=== PATIENT | female | born 1980 | race Caucasian/White ===

== ENCOUNTER 2021-03-18 14:22 | Outpatient (REF) | payer OTHER, SELFPAY ==
--- NOTE | ~2021-03-18 | XR_ITS ---
EXAMINATION: XR KNEE, BILATERAL XR ANKLE, BILATERAL CLINICAL INFORMATION: Bilateral knee pain and ankle pain. COMPARISON: None TECHNIQUE: 3 views each ankle, 2 views each knee. FINDINGS: RIGHT KNEE AND ANKLE: Overall the knee joint appears somewhat unusual with unusual rounding of the lateral malleolus and a somewhat shortened medial malleolus possibly secondary to old tibial plafond fracture. The tibial plateaus appear somewhat rounded as well. The knee joint otherwise appears unremarkable with no joint space narrowing or abnormal chondrocalcinosis. The right ankle also demonstrates a similar abnormality with rounding of the distal fibular and tibial contour and rounding of the tibial plateau. No other ankle abnormality is seen. LEFT KNEE AND ANKLE: Overall the knee joint appears somewhat unusual with unusual rounding of the lateral malleolus and a somewhat shortened medial malleolus. The tibial plateaus appear somewhat rounded as well, possibly secondary to old tibial plafond fracture. A small bone island is present in the proximal tibial metaphysis The knee joint otherwise appears unremarkable with no significant bone, joint or soft tissue abnormality seen. The right ankle also demonstrates a similar abnormality with rounding of the distal fibular and tibial contour and rounding of the tibial plateau. No other ankle abnormality is seen. XR/XR ankle RT 2V IMPRESSION: No acute significant abnormality is detected. Other findings as described above.
--- NOTE | ~2021-03-18 | XR_ITS ---
EXAMINATION: XR KNEE, BILATERAL XR ANKLE, BILATERAL CLINICAL INFORMATION: Bilateral knee pain and ankle pain. COMPARISON: None TECHNIQUE: 3 views each ankle, 2 views each knee. FINDINGS: RIGHT KNEE AND ANKLE: Overall the knee joint appears somewhat unusual with unusual rounding of the lateral malleolus and a somewhat shortened medial malleolus possibly secondary to old tibial plafond fracture. The tibial plateaus appear somewhat rounded as well. The knee joint otherwise appears unremarkable with no joint space narrowing or abnormal chondrocalcinosis. The right ankle also demonstrates a similar abnormality with rounding of the distal fibular and tibial contour and rounding of the tibial plateau. No other ankle abnormality is seen. LEFT KNEE AND ANKLE: Overall the knee joint appears somewhat unusual with unusual rounding of the lateral malleolus and a somewhat shortened medial malleolus. The tibial plateaus appear somewhat rounded as well, possibly secondary to old tibial plafond fracture. A small bone island is present in the proximal tibial metaphysis The knee joint otherwise appears unremarkable with no significant bone, joint or soft tissue abnormality seen. The right ankle also demonstrates a similar abnormality with rounding of the distal fibular and tibial contour and rounding of the tibial plateau. No other ankle abnormality is seen. XR/XR knee RT 2V IMPRESSION: No acute significant abnormality is detected. Other findings as described above.
--- NOTE | ~2021-03-18 | XR_ITS ---
EXAMINATION: XR KNEE, BILATERAL XR ANKLE, BILATERAL CLINICAL INFORMATION: Bilateral knee pain and ankle pain. COMPARISON: None TECHNIQUE: 3 views each ankle, 2 views each knee. FINDINGS: RIGHT KNEE AND ANKLE: Overall the knee joint appears somewhat unusual with unusual rounding of the lateral malleolus and a somewhat shortened medial malleolus possibly secondary to old tibial plafond fracture. The tibial plateaus appear somewhat rounded as well. The knee joint otherwise appears unremarkable with no joint space narrowing or abnormal chondrocalcinosis. The right ankle also demonstrates a similar abnormality with rounding of the distal fibular and tibial contour and rounding of the tibial plateau. No other ankle abnormality is seen. LEFT KNEE AND ANKLE: Overall the knee joint appears somewhat unusual with unusual rounding of the lateral malleolus and a somewhat shortened medial malleolus. The tibial plateaus appear somewhat rounded as well, possibly secondary to old tibial plafond fracture. A small bone island is present in the proximal tibial metaphysis The knee joint otherwise appears unremarkable with no significant bone, joint or soft tissue abnormality seen. The right ankle also demonstrates a similar abnormality with rounding of the distal fibular and tibial contour and rounding of the tibial plateau. No other ankle abnormality is seen. XR/XR ankle LT 2V IMPRESSION: No acute significant abnormality is detected. Other findings as described above.
--- NOTE | ~2021-03-18 | XR_ITS ---
EXAMINATION: XR KNEE, BILATERAL XR ANKLE, BILATERAL CLINICAL INFORMATION: Bilateral knee pain and ankle pain. COMPARISON: None TECHNIQUE: 3 views each ankle, 2 views each knee. FINDINGS: RIGHT KNEE AND ANKLE: Overall the knee joint appears somewhat unusual with unusual rounding of the lateral malleolus and a somewhat shortened medial malleolus possibly secondary to old tibial plafond fracture. The tibial plateaus appear somewhat rounded as well. The knee joint otherwise appears unremarkable with no joint space narrowing or abnormal chondrocalcinosis. The right ankle also demonstrates a similar abnormality with rounding of the distal fibular and tibial contour and rounding of the tibial plateau. No other ankle abnormality is seen. LEFT KNEE AND ANKLE: Overall the knee joint appears somewhat unusual with unusual rounding of the lateral malleolus and a somewhat shortened medial malleolus. The tibial plateaus appear somewhat rounded as well, possibly secondary to old tibial plafond fracture. A small bone island is present in the proximal tibial metaphysis The knee joint otherwise appears unremarkable with no significant bone, joint or soft tissue abnormality seen. The right ankle also demonstrates a similar abnormality with rounding of the distal fibular and tibial contour and rounding of the tibial plateau. No other ankle abnormality is seen. XR/XR knee LT 2V IMPRESSION: No acute significant abnormality is detected. Other findings as described above.
== END 2021-03-18 14:23 | disposition home or self-care (01) ==
LOC: HO.XRAY 14:22
PROVIDERS: PCP Internal Medicine; Visit Provider Internal Medicine
DX: M25.561 Pain in right knee (principal); M25.562 Pain in left knee; M25.571 Pain in right ankle and joints of right foot; M25.572 Pain in left ankle and joints of left foot
CPT/HCPCS: 73560; 73600

== ENCOUNTER 2021-10-25 10:32 | Outpatient (REF) | payer OTHER, SELFPAY ==
[2021-10-25 14:40] LABS: CT PCR NOT DETECTED (Not Detect.); NG PCR NOT DETECTED (Not Detect.)
[2021-10-28 06:46] LABS: HPV mRNA E6/E7 rflx Not Detected (Not Detected)
== END 2021-10-25 10:33 | disposition home or self-care (01) ==
LOC: HO.LAB 10:32
PROVIDERS: Visit Provider Advanced Practice Midwife
DX: Z01.419 Encounter for gynecological examination (general) (routine) without abnormal findings (principal); Z11.51 Encounter for screening for human papillomavirus (HPV); Z20.2 Contact with and (suspected) exposure to infections with a predominantly sexual mode of transmission
CPT/HCPCS: 87491; 87591; 87624; 88142

== ENCOUNTER 2021-11-19 09:00 | Outpatient (RCR) | payer OTHER, SELFPAY | END 2022-01-26 13:40 | disposition home or self-care (01) | LOC: HO.PT 09:00 | PROVIDERS: PCP Internal Medicine; Visit Provider Physician Assistant | DX: M54.16 Radiculopathy, lumbar region (principal) | CPT/HCPCS: 97110; 97140; 97162; 97530; 97535 ==

== ENCOUNTER 2021-12-31 09:17 | Outpatient (REF) | payer OTHER, SELFPAY ==
--- NOTE | ~2021-12-31 | MM_ITS ---
EXAMINATION: MM SCREENING DIGITAL BREAST TOMOSYNTHESIS, BILATERAL CLINICAL INFORMATION: Screening. Asymptomatic. No prior breast imaging. Age 41. No known family history breast cancer. The lifetime risk of breast cancer based on the Tyrer-Cuzick Model is 8%. COMPARISON: None (current study represents initial baseline exam). TECHNIQUE: Digital breast tomosynthesis is performed in both the craniocaudal and mediolateral oblique views along with computer-aided detection (CAD). Synthesized 2D images are generated from the tomosynthesis. FINDINGS: The breasts are heterogeneously dense, which may obscure small masses (ACR BI-RADS breast composition Category c). There are no significant masses, abnormal calcifications, or other abnormalities. The axilla and skin contours are unremarkable. MM/MM tomosynthesis screening BI IMPRESSION: No mammographic evidence of malignancy. ASSESSMENT: BI-RADS 1: Negative RECOMMENDATION: Routine annual mammography screening. This patient's information was entered into a reminder system with a target due date for their next mammogram.
== END 2021-12-31 09:18 | disposition home or self-care (01) ==
LOC: HO.MAMMO 09:17
PROVIDERS: PCP Internal Medicine; Visit Provider Advanced Practice Midwife
DX: Z12.31 Encounter for screening mammogram for malignant neoplasm of breast (principal)
CPT/HCPCS: 77063; 77067

== ENCOUNTER 2023-03-31 09:02 | Outpatient (AMB) | payer OTHER, SELFPAY ==
--- NOTE | 2023-03-31 09:08 | A.OFFVIS_ITS ---
Intake Vital Signs 03/31/23 09:10 Height 4 ft 11 in Weight 150 lb BMI 30.3 BP 122/76 Intake Visit Reasons: [employer] annual exam Intake Note: ? 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 Doing well with concerns: menses skipping, several months, last in October, having hot flashes. Facial hair growth, acne, and feels off. She tries to eat healthy and stays active with exercise. Currently is sexually active. She denies vaginal itching and irritation. STI screening offered; she declines. Denies family history of breast, ovarian or colon cancer. Last pap smear, 09/2021, negative. [facility] Medical History GERD (gastroesophageal reflux disease) Surgical History History of abscess of breast History of foot surgery History of tubal ligation History of section Family History Father HIV (human immunodeficiency virus infection) Mother Accidental overdose Brother In good health Brother In good health Son In good health Son In good health Daughter In good health Daughter In good health Maternal Aunt Ovarian cancer Social History Housing: Apartment Patient Tobacco Use Status: Current someday Tobacco user Tobacco use type: Cigarette e-Cigarette/Vaping Use: Never Used Second Hand Smoke Exposure: No service: No Current occupational status: employed 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 Sexual orientation: Straight/Heterosexual Gender identity: Female Cognitive needs: No Hearing needs: No Vision needs: No Female Reproductive History Menstrual Total pregnancies: 5 Number of Living Children: 4 Date of last pap smear: 10/25/21 Date of Mammogram: 12/31/21 Review of Systems Const All systems reviewed & are unremarkable except as noted in HPI and below Reports as per HPI Eyes Reports no additional complaints ENT Reports no additional complaints Card Reports no additional complaints Resp Reports no additional complaints GI Reports as per HPI and Reports no additional complaints Reports as per HPI Musc Reports no additional complaints Skin/Breast Reports as per HPI Neuro Reports no additional complaints Psych Reports no additional complaints Endo Reports no additional complaints Abel/Lymph Reports no additional complaints Aller/Immun Reports no additional complaints Physical Exam Vital Signs: BMI result Body Mass Index 30.3 Const General: cooperative, healthy appearing, no acute distress, well developed and alert Orientation/consciousness: patient oriented x3 HEENT Head: Yes normal to inspection Eyes General: appearance normal, both eyes and all related structures Neck Neck: Yes normal visual inspection Thyroid: Thyroid normal Chest Chest palpation & inspection: normal inspection of the chest and other (no puckering, dimpling, peau de orange, retraction, discharge, masses) Breast/axilla inspection: normal inspection of the breasts Breast/axilla palpation: normal palpation of the breasts Resp Effort & Inspection: normal respiratory effort GI Inspection: Yes normal to inspection Palpation (GI): Soft to palpation Rectal Exam - Female: deferred General: Yes bladder normal to palpation External Female Exam: normal external appearance and normal appearance of the urethra Speculum Exam - Vagina: normal appearance of the vagina, normal palpation and normal vaginal discharge Speculum Exam - Cervix: normal appearance of the cervix and normal palpation Bimanual exam- vagina & uterus: normal bimanual exam, normal palpation, uterine size normal, bladder normal to palpation, normal palpation and non-tender Bimanual Exam- Adnexa, other: no masses Skin General skin exam: no rashes or lesions noted Rashes: no rashes Neuro General: patient oriented x3 Cognition (Neuro): normal cognition Extrem General: Yes normal to inspection Psych Attitude: cooperative Thought process: Normal thought process present Assessment & Plan Assessment & Plan (1) Encounter for well woman exam with routine gynecological exam: Code(s): Z01.419 - Encounter for gynecological examination (general) (routine) without abnormal findings (2) Hirsutism: Code(s): L68.0 - Hirsutism Plan: Discussed lab workup and follow-up plan of care (3) Perimenopause: Code(s): N95.1 - Menopausal and female climacteric states Plan Discussed: Current recommendations for pap smears per ASCCP guidelines. Breast awareness and periodic breast exams. Maintain a healthy lifestyle including a well balanced diet and routine exercise. Counseled re: perimenopause verses menopause changes. Monitor menstrual cycles, report any unscheduled bleeding, bleeding episodes <21 days apart or heavy/prolonged menstrual bleeding. Menopause occurs after a full 12 months of absent menses. If at risk for , use condoms, and if menses is late, take a home test. Discussed reading books, literature, including: the wisdom of menopause. Call the office for further evaluation if a positive result or abnormal bleeding pattern occurs. All of her questions and concerns were addressed to the best of my ability. She is agreeable to the plan of care. RTO in one year for annual field examiner examination. Orders: Orders MM tomosynthesis screening BI Today Z12.31 - Encounter for screening mammogram for malignant neoplasm of breast Follicle Stimulating Hormone Today R23.2 - Flushing 17 Hydroxyprogesterone Today L68.0 - Hirsutism, L70.9 - Acne, unspecified Testosterone, Free/Total Today L68.0 - Hirsutism, L70.9 - Acne, unspecified DHEA Sulfate Today L68.0 - Hirsutism, L70.9 - Acne, unspecified Prolactin Today L68.0 - Hirsutism, L70.9 - Acne, unspecified Coding Level of Care Code Est Pt Prev Care 40-64y(16505) Diagnoses Encounter for well woman exam with routine gynecological exam Z01.419 Hirsutism L68.0 Perimenopause N95.1
[2023-03-31 09:10] VITALS: BP 122/76; BMI 30.3
== END 2023-03-31 09:41 | disposition home or self-care (01) ==
PROVIDERS: PCP Internal Medicine; Visit Provider Advanced Practice Midwife
DX: Z01.419 Encounter for gynecological examination (general) (routine) without abnormal findings (principal); L68.0 Hirsutism; N95.1 Menopausal and female climacteric states
CPT/HCPCS: 99396

== ENCOUNTER → 2023-03-31 09:02 | Outpatient (BNVA) | payer OTHER, SELFPAY | PROVIDERS: PCP Internal Medicine; Visit Provider Advanced Practice Midwife ==

== ENCOUNTER 2023-04-14 08:43 | Outpatient (REF) | payer OTHER, SELFPAY ==
--- NOTE | ~2023-04-14 | MM_ITS ---
EXAMINATION: MM SCREENING DIGITAL BREAST TOMOSYNTHESIS, BILATERAL CLINICAL INFORMATION: Screening. Asymptomatic. COMPARISON: Mammography: This study is compared with prior exams dating back to 2021. TECHNIQUE: Digital breast tomosynthesis is performed in both the craniocaudal and mediolateral oblique views along with computer-aided detection (CAD). Synthesized 2D images are generated from the tomosynthesis. FINDINGS: The breasts are heterogeneously dense, which may obscure small masses (ACR BI-RADS breast composition Category c). There are no significant masses, abnormal calcifications, or other abnormalities. MM/MM tomosynthesis screening BI IMPRESSION: No mammographic evidence of malignancy. ASSESSMENT: BI-RADS BI-RADS 1 - Negative RECOMMENDATION: Routine annual mammography screening. 1 year F/U This examination should not preclude the clinical evaluation of a suspicious palpable abnormality. This patient's information was entered into a reminder system with a target due date for their next mammogram.
[2023-04-14 09:36] LABS: MANUAL DIFF FLAG NO
[2023-04-14 10:18] LABS: Basophils Percent Auto 0.7 % (0-2); Eosinophils Absolute Auto 0.2 X10*3/uL (0.0-0.4); Eosinophils Percent Auto 3.8 % (0-4); Hematocrit 40.9 % (37.0-47.0); Hemoglobin 13.8 g/dl (12.0-16.0); Imm Gran Abs Auto 0.01 X10*3/uL (0.00-0.03); Imm Gran Pct Auto 0.2 % (0.0-0.4); Lymphocytes Percent Auto 32.7 % (20-40); Mean Corpuscular HGB Conc 33.7 g/dl (31.0-35.0); Mean Corpuscular Hemoglobin 29.6 pg (27.0-33.0); Mean Corpuscular Volume 87.8 fL (80.0-98.0); Mean Platelet Volume 9.4 fL (9.4-12.3); Monocytes Absolute Auto 0.6 X10*3/uL (0.1-1.2); Monocytes Percent Auto 10.2 % (2-11); Neutrophils Absolute Auto 3.2 x10*3/uL (2.0-8.3); Neutrophils Percent Auto 52.4 % (45-73); Platelet Count 304 X10*3/uL (160-400); Red Blood Count 4.66 X10*6/uL (4.20-5.50); Red Cell Distribution Width 12.2 % (11.0-16.0); White Blood Count 6.1 X10*3/uL (4.8-10.8)
[2023-04-14 10:43] LABS: Alanine Aminotransferase 25 U/L (0-31); Albumin Level 4.2 g/dL (3.5-5.0); Alkaline Phosphatase 78 U/L (39-117); Anion Gap 12 (12-20); Aspartate Amino Transferase 23 U/L (5-31); Bilirubin Total 0.3 mg/dL (0.0-1.0); Blood Urea Nitrogen 13 mg/dL (9-16); Calcium 9.5 mg/dL (8.4-10.2); Carbon Dioxide 23 mmol/L (22-29); Chloride 108 mmol/L (96-108); Cholesterol 183 mg/dL (<200); Estimated Glomerular Filt Rate > 60; Glucose Fasting 99 mg/dL (60-99); HDL Cholesterol 37 mg/dL (>40); LDL Cholesterol Calculated 128 mg/dL (<100); Potassium 4.4 mmol/L (3.3-5.1); Sodium 139 mmol/L (135-145); Total Protein 7.4 g/dL (6.5-8.0); Triglycerides 92 mg/dL (<150)
[2023-04-14 10:57] LABS: Thyroid Stimulating Hormone 0.78 uIU/mL (0.32-4.0)
== END 2023-04-14 08:44 | disposition home or self-care (01) ==
LOC: HO.MAMMO 08:43
PROVIDERS: PCP Internal Medicine; Referring Provider Advanced Practice Midwife; Visit Provider Internal Medicine
DX: E03.9 Hypothyroidism, unspecified (principal); D64.9 Anemia, unspecified; E78.5 Hyperlipidemia, unspecified; N28.9 Disorder of kidney and ureter, unspecified; Z12.31 Encounter for screening mammogram for malignant neoplasm of breast
CPT/HCPCS: 36415; 77063; 77067; 80053; 80061; 84443; 85025

== ENCOUNTER → 2023-04-14 08:45 | Outpatient (BNV) | payer OTHER, SELFPAY | PROVIDERS: PCP Internal Medicine; Referring Provider Advanced Practice Midwife; Visit Provider Radiology Diagnostic Radiology | DX: Z12.31 Encounter for screening mammogram for malignant neoplasm of breast (principal) | CPT/HCPCS: 77063; 77067 ==

== ENCOUNTER 2023-04-28 13:50 | Outpatient (REF) | payer OTHER, SELFPAY ==
[2023-04-29 10:09] LABS: DHEA Sulfate 342 mcg/dL (15-205); Follicle Stimulating Hormone 24.1 mIU/mL; Prolactin 7.6 ng/mL
[2023-05-05 15:33] LABS: Testosterone, Free 5.7 pg/mL (0.1-6.4); Testosterone, Total 36 ng/dL (2-45)
== END 2023-04-28 13:51 | disposition home or self-care (01) ==
LOC: HO.LAB 13:50
PROVIDERS: PCP Internal Medicine; Visit Provider Advanced Practice Midwife
DX: L68.0 Hirsutism (principal); R23.2 Flushing; L70.9 Acne, unspecified
CPT/HCPCS: 36415; 82627; 83001; 83498; 84146; 84402; 84403

== ENCOUNTER 2023-06-01 08:08 | Outpatient (AMB) | payer OTHER, SELFPAY ==
--- NOTE | 2023-06-01 08:11 | A.OFFVIS_ITS ---
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 She now reports no menses since October. She is concerned about her facial hair growth, fatigue and her less concerned with hot flashes, along with other symptoms-irritability. History of a tubal ligation. [facility] Medical History GERD (gastroesophageal reflux disease) Surgical History History of abscess of breast History of foot surgery History of tubal ligation History of section Family History Father HIV (human immunodeficiency virus infection) Mother Accidental overdose Brother In good health Brother In good health Son In good health Son In good health Daughter In good health Daughter In good health Maternal Aunt Ovarian cancer Social History Housing: Apartment Patient Tobacco Use Status: Current someday Tobacco user Tobacco use type: Cigarette e-Cigarette/Vaping Use: Never Used Second Hand Smoke Exposure: No service: No Current occupational status: employed 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 Sexual orientation: Straight/Heterosexual Gender identity: Female Cognitive needs: No Hearing needs: No Vision needs: No Review of Systems Const All systems reviewed & are unremarkable except as noted in HPI and below Endo Reports no additional complaints Physical Exam Vital Signs: Last Vital Signs BP 100/66 06/01/23 08:13 BMI result Body Mass Index 30.3 Const General: cooperative, healthy appearing and no acute distress Psych Appearance: well kempt Attitude: cooperative Thought process: Normal thought process present Assessment & Plan Assessment & Plan (1) Irregular menses: Code(s): N92.6 - Irregular menstruation, unspecified (2) Perimenopause: Code(s): N95.1 - Menopausal and female climacteric states Plan Discussed: lab findings elevated FSH, concerns for hirsutism, treatment options: HRT, gabapentin, SSRIs, other modalities. We will discuss again in a short interval of time after careful thoughts of her options. All of her questions and concerns were addressed to the best of my ability. Coding Level of Care Code Est Pt Level 3 (89612) Diagnoses Irregular menses N92.6 Perimenopause N95.1
[2023-06-01 08:13] VITALS: BP 100/66; BMI 30.3
== END 2023-06-01 15:04 | disposition home or self-care (01) ==
LOC: HO.HWS 08:08
PROVIDERS: PCP Internal Medicine; Visit Provider Advanced Practice Midwife
DX: N92.6 Irregular menstruation, unspecified (principal); N95.1 Menopausal and female climacteric states
CPT/HCPCS: 99213

== ENCOUNTER → 2023-06-01 08:08 | Outpatient (BNVA) | payer OTHER, SELFPAY | PROVIDERS: PCP Internal Medicine; Visit Provider Advanced Practice Midwife | DX: N92.6 Irregular menstruation, unspecified (principal); N95.1 Menopausal and female climacteric states | CPT/HCPCS: 99212 ==

== ENCOUNTER 2023-06-07 07:41 | Outpatient (AMB) | payer OTHER, SELFPAY ==
--- NOTE | 2023-06-07 07:41 | MHC.OFFVIS ---
Intake Intake Visit Reasons: follow up Intake Note: cell # [phone] Client Engagement Manager: Client Engagement Manager Present Allergies vancomycin [VANCOMYCIN] Allergy (Severe, Verified 06/07/23 07:41) HIVES, severe rash Is last menstrual period known: Yes HPI HPI Comments History of Present Illness Details [facility] visit 07:55-08:13. Video call due to Covid 19 Pandemic. I spent 18 minutes speaking with the patient on the phone plus an additional 5 minutes reviewing the chart and 5 minutes updating the medical record for a total of 28minutes. Patient presents via video call to discuss: Follow-up on her concerns-fatigue, facial hair growth, irritability/mood swings, irregular menses, and hot flashes. Previous labs revealed elevated FSH in DHEA sulfate. She admits that her bedroom is hot the radiator is next to her bed in its limited space to move away from that she feels her hot flashes are the lesser of her concerns, she is more concerned about the facial hair growth, fatigue and her mood changes. She was under the impression that her D levels were up-to-date, they were not drawn in March. She admits that she has had a deficiency in the past and is not taking any supplements currently. Current smoker. [facility] Medical History GERD (gastroesophageal reflux disease) Surgical History History of abscess of breast History of foot surgery History of tubal ligation History of section Family History Father HIV (human immunodeficiency virus infection) Mother Accidental overdose Brother In good health Brother In good health Son In good health Son In good health Daughter In good health Daughter In good health Maternal Aunt Ovarian cancer Social History Housing: Apartment Patient Tobacco Use Status: Current someday Tobacco user Tobacco use type: Cigarette e-Cigarette/Vaping Use: Never Used Second Hand Smoke Exposure: No service: No Current occupational status: employed 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 Sexual orientation: Straight/Heterosexual Gender identity: Female Cognitive needs: No Hearing needs: No Vision needs: No Review of Systems Const All systems reviewed & are unremarkable except as noted in HPI and below Endo Reports no additional complaints Physical Exam Const General: cooperative, healthy appearing and no acute distress Psych Appearance: well kempt Attitude: cooperative Thought process: Normal thought process present Assessment & Plan Assessment & Plan (1) Elevated dehydroepiandrosterone sulfate level: Code(s): R79.89 - Other specified abnormal findings of blood chemistry (2) Hirsutism: Code(s): L68.0 - Hirsutism (3) Perimenopause: Code(s): N95.1 - Menopausal and female climacteric states (4) Fatigue: Code(s): R53.83 - Other fatigue (5) Mood swings: Code(s): R45.86 - Emotional lability Plan Discussed: Treatment options including HRT: risks with smoker would help with hot flashes and mood changes. Gabapentin for hot flashes-she has not interested because her mother overdosed with this drug. SSRIs-benefits, treatment for facial hair growth endocrine consult. Strongly advised to check in with her primary care and get a D level evaluated as soon as possible. All of her questions and concerns were addressed to the best of my ability and shared decision making. She is agreeable to the plan of care. Advised the patient to call back for further options in the future once she is seen her primary care. Referral placed Endocrine today. Orders: Referrals Endocrinology Referral L68.0 - Hirsutism, R79.89 - Other specified abnormal findings of blood chemistry Telehealth Telehealth Location of provider rendering services: practice address Location of patient: other Patient Identification confirmed using: Name, : Yes Telehealth method: video Patient verbally consented to treatment: Yes Patient verbally consented to billing insurance company: Yes Patient informed of any privacy concerns related to visit: Yes Coding Level of Care Code Tele Est Pt Level 3 (16095) Diagnoses Elevated dehydroepiandrosterone sulfate level R79.89 Hirsutism L68.0 Perimenopause N95.1 Fatigue R53.83 Mood swings R45.86
== END 2023-06-07 12:42 | disposition home or self-care (01) ==
LOC: HO.HWS 07:41
PROVIDERS: PCP Internal Medicine; Visit Provider Advanced Practice Midwife
DX: R79.89 Other specified abnormal findings of blood chemistry (principal); L68.0 Hirsutism; N95.1 Menopausal and female climacteric states; R53.83 Other fatigue; R45.86 Emotional lability
CPT/HCPCS: 99213

== ENCOUNTER → 2023-06-07 07:41 | Outpatient (BNVA) | payer OTHER, SELFPAY | PROVIDERS: PCP Internal Medicine; Visit Provider Advanced Practice Midwife ==

== ENCOUNTER → 2024-04-19 08:30 | Outpatient (BNV) | payer BC, SELFPAY | PROVIDERS: PCP Internal Medicine; Visit Provider Internal Medicine | DX: Z12.31 Encounter for screening mammogram for malignant neoplasm of breast (principal) | CPT/HCPCS: 77063; 77067 ==

== ENCOUNTER 2024-04-19 08:31 | Outpatient (REF) | payer BC, SELFPAY | END 2024-04-19 08:32 | disposition home or self-care (01) | LOC: HO.MAMMO 08:31 | PROVIDERS: PCP Internal Medicine; Visit Provider Internal Medicine | DX: Z12.31 Encounter for screening mammogram for malignant neoplasm of breast (principal) | CPT/HCPCS: 77063; 77067 ==

== ENCOUNTER 2024-04-23 10:59 | Outpatient (AMB) | payer BC, SELFPAY ==
--- NOTE | 2024-04-23 11:02 | MHC.PC.OV ---
Vital Signs 04/23/24 11:03 Height 4 ft 11 in Weight 154 lb 8 oz BMI 31.2 BP 120/72 Blood Pressure Location Lt brachial Position Sitting Pulse 83 Pulse Source Pulse Oximeter Pulse Oximetry (%) 95 Oxygen Delivery Method Room Air Intake Visit Reasons: PE Intake Note: Patient is here today for a physical. Cutter Operator Required: No Strawhat Inspector And Packer: Not Required per policy Accompanied by: Self / Same As Patient Allergies vancomycin [VANCOMYCIN] Allergy (Severe, Verified 04/23/24 11:03) HIVES, severe rash Medication List - Last Reconciled 04/23/24 by Troy Stratton MD omeprazole 20 mg PO DAILY PRN Tobacco use date assessed: 04/23/24 Dental Screening Dental Screen Date: 04/23/24 Did you have a dental visit in the last 12 months?: Yes Did you have a dental problem in the last 6 months where you did not have access to dental care?: No Was dental information given to patient?: Patient has dentist HPI PE HPI Details mild gerd on prn rx PFSH Medical History GERD (gastroesophageal reflux disease) Surgical History History of abscess of breast History of foot surgery History of tubal ligation History of section Family History Father HIV (human immunodeficiency virus infection) Mother Accidental overdose Brother In good health Brother In good health Son In good health Son In good health Daughter In good health Daughter In good health Maternal Aunt Ovarian cancer Social History (Updated 04/23/24 @ 11:08 by SAURABH Garcia) Housing: Apartment Patient Tobacco Use Status: Current someday Tobacco user Tobacco use type: Cigarette Cigarettes Per Day: 4 e-Cigarette/Vaping Use: Never Used Second Hand Smoke Exposure: Yes service: No Current occupational status: employed 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 1. Little interest or pleasure in doing things: not at all 2. Feeling down, depressed, or hopeless: not at all 3. Trouble falling or staying asleep, or sleeping too much: not at all Depression Screening Interpretation: Negative Depression Screening Done: Yes Source: Developed by Drs. Pool Rodgers, Latasha Gutierrez, Alton Bansal and colleagues, with an educational rodolfo from [employer]. Thrive Questionnaire Date Thrive assessed: 04/23/24 I am a: Patient What is your living situation today?: I have a steady place to live Within the past 12 months, did the food you bought not last and you didn't have the money to get more?: I choose not to answer this question Within the past 12 months, did you worry whether your food would run out before you got money to buy more?: I choose not to answer this question Do you have trouble paying for medicines?: I choose not to answer this question Do you have trouble getting transportation to medical appointments?: I choose not to answer this question Do you have trouble paying your heating and electricity bill?: I choose not to answer this question Do you have trouble taking care of your child, family member or friend?: No Do you have trouble with day-to-day activities such as bathing, preparing meals, shopping, managing finances, etc.?: No Are you currently unemployed and looking for a job?: No Are you interested in more education?: No Please select the resources that you would like help with: None Currently or been in a relationship where the following occur: No concerns reported THRIVE Score: 0 AUDIT C Alcohol Use Questionnaire (AUDIT-C) 1. How often do you have a drink containing alcohol?: Never Total Score: 0 ESTEFANIA-7 AMB Questionnaire ESTEFANIA-7 Date ESTEFANIA - 7 assessed: 04/23/24 Feeling nervous, anxious, or on edge: 0 = Not at all Not being able to stop or control worryin = Not at all Worrying too much about different things: 0 = Not at all Trouble relaxin = Not at all Being so restless that it is hard to sit still: 0 = Not at all Becoming easily annoyed or irritable: 0 = Not at all Feeling afraid as if something awful might happen: 0 = Not at all Total ESTEFANIA-7 score (0-4 normal; 5-9 mild; 10-14 moderate; 15-21 severe): 0 Source: Developed by Drs. Pool Rodgers, Latasha Gutierrez, Alton Bansal and colleagues, with an educational rodolfo from [employer]. Review of Systems Const Denies chills, Denies fatigue, Denies headache(s) and Denies weight loss Eyes Denies change in vision, Denies diplopia and Denies eye pain ENT Denies vertigo, Denies dizziness, Denies headache(s) and Denies nasal discharge Card Denies chest pain, Denies rapid heart rate and Denies dyspnea on exertion Resp Denies chest congestion, Denies cough, Denies pain with cough and Denies dyspnea on exertion GI Denies abdominal pain, Denies hematochezia and Denies change in bowel habits Musc Denies myalgias, Denies arthralgias and Denies joint swelling Skin/Breast Denies lesions and Denies unusual bruising Neuro Denies vertigo, Denies dizziness, Denies headache(s) and Denies focal weakness Endo Denies fatigue Physical exam (Primary Care) Vital Signs: Last Vital Signs Pulse 83 04/23/24 11:03 BP 120/72 04/23/24 11:03 Pulse Ox 95 04/23/24 11:03 Oxygen Delivery Method Room Air 04/23/24 11:03 BMI result Body Mass Index 31.2 Tobacco/Smoking Status: Tobacco use Status Tobacco use date assessed 04/23/24 04/23/24 11:09 Patient Tobacco Use Status Current someday Tobacco 04/23/24 11:09 Tobacco use type Cigarette 04/23/24 11:09 e-Cigarette/Vaping Use Never Used 04/23/24 11:09 Depression Screening Interpretation: Negative Thrive Assessment: Date of Thrive Assessment Date Thrive assessed 04/23/24 04/23/24 11:09 Currently or been in a relationship where the following occur: No concerns reported Const General: cooperative, healthy appearing and no acute distress Orientation/consciousness: oriented to person, oriented to place and oriented to time [facility] Head: Yes normal to inspection, Yes normocephalic and Yes atraumatic Mouth: Normal oral and palatal mucosa present and tongue normal Throat: Yes posterior oropharynx normal and Yes uvula midline Eyes General: appearance normal, both eyes and all related structures Neck Neck: Yes normal visual inspection, Yes full ROM and Yes no lymphadenopathy Thyroid: Thyroid normal Carotids: normal carotid upstroke Chest Chest palpation & inspection: normal inspection of the chest Resp Effort & Inspection: normal respiratory effort and able to speak in complete sentences Auscultation: clear to auscultation bilaterally Cardio Jugular venous distension: no JVD Palpation: normal PMI Rate: regular rate Rhythm: regular rhythm Heart sounds: S1 normal heart sound present and S2 normal heart sound present GI Inspection: Yes normal to inspection Palpation (GI): Soft to palpation and No hepatosplenomegaly present Auscultation: normal bowel sounds General: Yes no CVA tenderness Back/Spine/Pelvis Back: no CVA tenderness Skin General skin exam: no rashes or lesions noted Neuro General: oriented to person, oriented to place and oriented to time Extrem General: Yes normal to inspection and Yes full ROM Coding Level of Care Code Est Pt Prev Care 40-64y(63818) Diagnoses Physical exam Z00.00 Chronic GERD K21.9 Assessment & Plan Assessment & Plan (1) Physical exam: Code(s): Z00.00 - Encounter for general adult medical examination without abnormal findings Category: Medical Plan: stable; do labs (2) Chronic GERD: Code(s): K21.9 - Gastro-esophageal reflux disease without esophagitis Category: Medical Plan: stable; same rx Orders: Orders Thyroid Stimulating Hormone Today Z13.29 - Encounter for screening for other suspected endocrine disorder Lipid Panel Today Z13.220 - Encounter for screening for lipoid disorders Complete Blood Count Auto Diff Today Z13.0 - Encounter for screening for diseases of the blood and blood-forming organs and certain disorders involving the immune mechanism [facility]. Panel Fast Today Z13.9 - Encounter for screening, unspecified Referrals Dermatology Referral R22.9 - Localized swelling, mass and lump, unspecified
[2024-04-23 11:03] VITALS: BP 120/72; PULSE 83; O2SAT 95; BMI 31.2
== END 2024-04-23 11:26 | disposition home or self-care (01) ==
PROVIDERS: PCP Internal Medicine; Visit Provider Internal Medicine
DX: Z00.00 Encounter for general adult medical examination without abnormal findings (principal); K21.9 Gastro-esophageal reflux disease without esophagitis

== ENCOUNTER → 2024-04-23 10:59 | Outpatient (BNVA) | payer BC, SELFPAY | PROVIDERS: PCP Internal Medicine; Visit Provider Internal Medicine ==

== ENCOUNTER 2024-08-28 13:56 | Outpatient (AMB) | payer BC, SELFPAY ==
--- NOTE | 2024-08-28 13:58 | MHC.OFFVIS ---
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 Doing well with transport driver concerns: No menses for a year. Having hot flashes, mood changes, fatigue, hair loss, facial hair, and weight gain. Currently is not sexually active due to partners medical concerns. She denies vaginal itching and irritation. STI screening offered; she declines. She tries to eat healthy and stays active with exercise-goes to the gym when possible. Denies family history of breast or colon cancer. FH ovarian cancer. Last pap smear 2021, negative. Mammogram: 2023. [facility] Medical History Hot flashes GERD (gastroesophageal reflux disease) Surgical History History of abscess of breast History of foot surgery History of tubal ligation History of section Family History Father HIV (human immunodeficiency virus infection) Mother Accidental overdose Brother In good health Brother In good health Son In good health Son In good health Daughter In good health Daughter In good health Maternal Aunt Ovarian cancer Paternal Grandmother Diabetes mellitus Social History Housing: Apartment Patient Tobacco Use Status: Current someday Tobacco user Tobacco use type: Cigarette Cigarettes Per Day: 4 e-Cigarette/Vaping Use: Never Used Second Hand Smoke Exposure: Yes service: No Current occupational status: employed 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 Sexual orientation: Straight/Heterosexual Gender identity: Female Cognitive needs: No Hearing needs: No Vision needs: Yes (Glasses) Female Reproductive History Menstrual control method: permanent sterilization Permanent Sterilization: BTL Total pregnancies: 5 Full term: 4 Number of Living Children: 4 Date of last pap smear: 10/25/21 (neg pap and hpv) Date of Mammogram: 04/19/24 ([facility] 1) Review of Systems Const All systems reviewed & are unremarkable except as noted in HPI and below Reports as per HPI Eyes Reports no additional complaints ENT Reports no additional complaints Card Reports no additional complaints Resp Reports no additional complaints GI Reports as per HPI and Reports no additional complaints Reports as per HPI Musc Reports no additional complaints Skin/Breast Reports as per HPI Neuro Reports no additional complaints Psych Reports no additional complaints Endo Reports no additional complaints Abel/Lymph Reports no additional complaints Aller/Immun Reports no additional complaints Physical Exam Vital Signs: Last Vital Signs BP 110/70 08/28/24 14:00 BMI result Body Mass Index 31.7 Const General: cooperative, healthy appearing, no acute distress, well developed and alert Orientation/consciousness: patient oriented x3 HEENT Head: Yes normal to inspection Eyes General: appearance normal, both eyes and all related structures Neck Neck: Yes normal visual inspection Thyroid: Thyroid normal Chest Chest palpation & inspection: normal inspection of the chest and other (no puckering, dimpling, peau de orange, retraction, discharge, masses) Breast/axilla inspection: normal inspection of the breasts Breast/axilla palpation: normal palpation of the breasts Resp Effort & Inspection: normal respiratory effort GI Inspection: Yes normal to inspection Palpation (GI): Soft to palpation Rectal Exam - Female: deferred General: Yes bladder normal to palpation External Female Exam: normal external appearance and normal appearance of the urethra Speculum Exam - Vagina: normal appearance of the vagina, normal palpation and normal vaginal discharge Speculum Exam - Cervix: normal appearance of the cervix and normal palpation Bimanual exam- vagina & uterus: normal bimanual exam, normal palpation, uterine size normal, bladder normal to palpation, normal palpation and non-tender Bimanual Exam- Adnexa, other: no masses Skin General skin exam: no rashes or lesions noted Rashes: no rashes Neuro General: patient oriented x3 Cognition (Neuro): normal cognition Extrem General: Yes normal to inspection Psych Attitude: cooperative Thought process: Normal thought process present Assessment & Plan Assessment & Plan (1) Hot flashes: Code(s): R23.2 - [place] Category: Medical Plan: Discuss transition from perimenopause to menopause. Information provided regarding [email or web address] handout, additional information on osteoporosis prevention, diet and supplementation handout. Total time I personally spent on visit and management today: ?10 minutes. Time spent included review of pertinent office notes in the electronic health record; review of laboratory and imaging results; review of personal family medical history; performing physical exam; discussing diagnosis and plan of care with the patient; documenting the encounter in the EMR. Complete labs with primary care fasting labs. Follow up within 2 months for appointment. (2) Encounter for well woman exam with routine gynecological exam: Code(s): Z01.419 - Encounter for gynecological examination (general) (routine) without abnormal findings Category: Medical Plan: Discussed: Current recommendations for pap smears per ASCCP guidelines. Breast awareness and periodic breast exams. Mammogram yearly. Maintain a healthy lifestyle including a well balanced diet and routine exercise. Patient verbalizes understanding and agrees to the plan of care. She was given opportunity to ask questions and all questions were answered to the best of my ability. RTO in one year for annual transport driver examination. This note is constructed using voice recognition software. While every effort has been made to ensure accuracy, side seam envelope machine operator errors may have been included. (3) Hirsutism: Code(s): L68.0 - Hirsutism Plan Repeat DHEA sulfate, follow up pending results including Endocrine referral. Orders: Orders Vitamin D 25-OH (D2 and D3) Today R23.2 - [place] Follicle Stimulating Hormone Today R23.2 - [place] MM tomosynthesis screening BI Today Z12.31 - Encounter for screening mammogram for malignant neoplasm of breast Lutenizing Hormone Today R23.2 - [place] DHEA Sulfate Today L68.0 - Hirsutism Coding Level of Care Code Est Pt Level 2 (49661) Est Pt Prev Care 40-64y(80481) Diagnoses Hot flashes R23.2 Encounter for well woman exam with routine gynecological exam Z01.419 Hirsutism L68.0
[2024-08-28 14:00] VITALS: BP 110/70; BMI 31.7
== END 2024-08-28 15:38 ==
LOC: HO.HWS 13:56
PROVIDERS: PCP Internal Medicine; Visit Provider Advanced Practice Midwife
DX: Z01.419 Encounter for gynecological examination (general) (routine) without abnormal findings (principal); R23.2 Flushing; L68.0 Hirsutism
CPT/HCPCS: 99212; 99396; 99459

== ENCOUNTER 2024-08-28 13:56 | Outpatient (REF) | payer BC, SELFPAY ==
[2024-08-28 15:08] LABS: MANUAL DIFF FLAG NO
[2024-08-28 15:26] LABS: Basophils Absolute Auto 0.1 X10*3/uL (0.0-0.2); Basophils Percent Auto 0.6 % (0-2); Eosinophils Absolute Auto 0.1 X10*3/uL (0.0-0.4); Eosinophils Percent Auto 1.5 % (0-4); Hematocrit 43.6 % (37.0-47.0); Hemoglobin 14.4 g/dl (12.0-16.0); Imm Gran Abs Auto 0.02 X10*3/uL (0.00-0.03); Imm Gran Pct Auto 0.2 % (0.0-0.4); Lymphocytes Absolute Auto 2.1 X10*3/uL (1.2-4.9); Lymphocytes Percent Auto 26.5 % (20-40); Mean Corpuscular Hemoglobin 29.3 pg (27.0-33.0); Mean Corpuscular Volume 88.6 fL (80.0-98.0); Monocytes Absolute Auto 0.7 X10*3/uL (0.1-1.2); Monocytes Percent Auto 8.5 % (2-11); Neutrophils Absolute Auto 5.1 x10*3/uL (2.0-8.3); Neutrophils Percent Auto 62.7 % (45-73); Platelet Count 346 X10*3/uL (160-400); Red Blood Count 4.92 X10*6/uL (4.20-5.50); Red Cell Distribution Width 12.3 % (11.0-16.0); White Blood Count 8.1 X10*3/uL (4.8-10.8)
[2024-08-28 16:00] LABS: Thyroid Stimulating Hormone 0.68 uIU/mL (0.32-4.0)
[2024-08-29 04:59] LABS: DHEA Sulfate 321 mcg/dL (15-205); Follicle Stimulating Hormone 51.9 mIU/mL; Lutenizing Hormone 45.4 mIU/mL
[2024-09-02 04:58] LABS: Vitamin D 25-OH, D2 <4 ng/mL; Vitamin D 25-OH, D3 23 ng/mL; Vitamin D 25-OH, Total 23 ng/mL (30-100)
== END 2024-08-28 13:57 | disposition home or self-care (01) ==
LOC: HO.LAB 13:56
PROVIDERS: PCP Internal Medicine; Visit Provider Advanced Practice Midwife
DX: Z13.0 Encounter for screening for diseases of the blood and blood-forming organs and certain disorders involving the immune mechanism (principal); Z13.29 Encounter for screening for other suspected endocrine disorder; L68.0 Hirsutism; R23.2 Flushing
CPT/HCPCS: 36415; 82306; 82627; 83001; 83002; 84443; 85025

== ENCOUNTER 2024-10-10 09:51 | Outpatient (AMB) | payer BC, SELFPAY ==
[2024-10-10 09:54] VITALS: BP 130/84; PULSE 101; O2SAT 98; BMI 31.9
--- NOTE | 2024-10-10 09:54 | A.OFFPC_ITS ---
Vital Signs 10/10/24 09:54 Height 4 ft 11 in Weight 158 lb BMI 31.9 BP 130/84 Blood Pressure Location Lt brachial Position Sitting Pulse 101 H Pulse Source Pulse Oximeter Pulse Oximetry (%) 98 Oxygen Delivery Method Room Air Intake Visit Reasons: AUGUSTO Dr Stratton Carpentry Supervisor Required: No Accompanied by: Self / Same As Patient Allergies vancomycin [VANCOMYCIN] Allergy (Severe, Verified 10/10/24 10:11) HIVES, severe rash Medication List - Last Reconciled 10/10/24 by Migdalia Mullen PA-C cetirizine (Zyrtec) 10 mg PO DAILY PRN omeprazole 20 mg PO DAILY PRN Tobacco use date assessed: 10/10/24 Dental Screening Dental Screen Date: 10/10/24 Did you have a dental visit in the last 12 months?: Yes Did you have a dental problem in the last 6 months where you did not have access to dental care?: No Was dental information given to patient?: Patient has dentist HPI AUGUSTO Dr Stratton HPI Details 44 year old female with past history of GERD last seen by Dr. Stratton 03/2024 coming in for AUGUSTO. Patient was seen by internal communications intern for annual exam 07/2024. Presenting with the transfer of care and management of ongoing health issues including eczema, seasonal allergies, and menopausal symptoms. Eczema: The patient reports severe skin irritation, describing it as if glass is cutting her skin, and has tried various creams without relief. Seasonal allergies: These exacerbate her eczema symptoms, causing her to wear long clothing despite the heat. Menopausal symptoms: She has been experiencing symptoms for two years, including weight gain, fatigue, hair thinning, and mood changes, with no menstrual periods for a year and a half. She is awaiting an endocrinology appointment for further evaluation. [facility] Medical History Hot flashes GERD (gastroesophageal reflux disease) Surgical History History of abscess of breast History of foot surgery History of tubal ligation History of section Family History Father HIV (human immunodeficiency virus infection) Mother Accidental overdose Brother In good health Brother In good health Son In good health Son In good health Daughter In good health Daughter In good health Maternal Aunt Ovarian cancer Paternal Grandmother Diabetes mellitus Social History Housing: Apartment Patient Tobacco Use Status: Current someday Tobacco user Tobacco use type: Cigarette Cigarettes Per Day: 4 e-Cigarette/Vaping Use: Never Used Second Hand Smoke Exposure: Yes service: No Current occupational status: employed 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 1. Little interest or pleasure in doing things: not at all 2. Feeling down, depressed, or hopeless: not at all 3. Trouble falling or staying asleep, or sleeping too much: not at all 4. Feeling tired or having little energy: several days 5. Poor appetite or overeating: not at all 6. Feeling bad about yourself - or that you are a failure or have let yourself or your family down: not at all 7. Trouble concentrating on things, such as reading the newspaper or watching television: not at all 8. Moving or speaking so slowly that other people could have noticed. Or the opposite - being so fidgety or restless that you have been moving around a lot more than usual: not at all 9. Thoughts that you would be better off or of hurting yourself in some way: not at all Total score: 1 Source: Developed by Drs. Pool Rodgers, Latasha Gutierrez, Alton Bansal and colleagues, with an educational rodolfo from [facility] [employer]. Thrive Questionnaire Date Thrive assessed: 10/10/24 I am a: Patient What is your living situation today?: I have a steady place to live Within the past 12 months, did the food you bought not last and you didn't have the money to get more?: Never true Within the past 12 months, did you worry whether your food would run out before you got money to buy more?: Never true Do you have trouble paying for medicines?: No Do you have trouble getting transportation to medical appointments?: No Do you have trouble paying your heating and electricity bill?: No Do you have trouble taking care of your child, family member or friend?: No Do you have trouble with day-to-day activities such as bathing, preparing meals, shopping, managing finances, etc.?: No Are you currently unemployed and looking for a job?: No Are you interested in more education?: No Please select the resources that you would like help with: None Currently or been in a relationship where the following occur: No concerns reported THRIVE Score: 0 AUDIT C Alcohol Use Questionnaire (AUDIT-C) 1. How often do you have a drink containing alcohol?: Never 3. How often do you have six or more drinks on one occasion?: Never Total Score: 0 ESTEFANIA-7 AMB Questionnaire ESTEFANIA-7 Date ESTEFANIA - 7 assessed: 10/10/24 Feeling nervous, anxious, or on edge: 1 = Several days Not being able to stop or control worryin = More than half the days Worrying too much about different things: 3 = Nearly every day Trouble relaxin = More than half the days Being so restless that it is hard to sit still: 0 = Not at all Becoming easily annoyed or irritable: 3 = Nearly every day Feeling afraid as if something awful might happen: 0 = Not at all Total ESTEFANIA-7 score (0-4 normal; 5-9 mild; 10-14 moderate; 15-21 severe): 11 Source: Developed by Drs. Pool Rodgers, Latasha Gutierrez, Alton Bansal and colleagues, with an educational rodolfo from [facility]. Review of Systems Const Denies body aches, Denies chills, Denies fever(s), Denies headache(s) and Denies poor appetite Eyes Reports no additional complaints ENT Denies dysphagia, Denies dizziness, Denies headache(s) and Denies odynophagia Card Denies chest pain, Denies syncope, Denies edema, Denies irregular heart rhythm, Denies lightheadedness and Denies dyspnea Resp Denies cough and Denies dyspnea GI Denies abdominal pain, Denies constipation, Denies dysphagia, Denies diarrhea, Denies nausea, Denies odynophagia and Denies vomiting Reports no additional complaints Musc Reports no additional complaints and Denies abnormal gait Skin/Breast Reports system reviewed and no additional complaints, except as documented Neuro Denies abnormal gait, Denies dizziness, Denies syncope and Denies headache(s) Psych Reports no additional complaints Physical exam (Primary Care) Vital Signs: Last Vital Signs Pulse 101 H 10/10/24 09:54 BP 130/84 10/10/24 09:54 Pulse Ox 98 10/10/24 09:54 Oxygen Delivery Method Room Air 10/10/24 09:54 BMI result Body Mass Index 31.9 Tobacco/Smoking Status: Tobacco use Status Tobacco use date assessed 10/10/24 10/10/24 10:00 Patient Tobacco Use Status Current someday Tobacco 10/10/24 10:00 Tobacco use type Cigarette 10/10/24 10:00 e-Cigarette/Vaping Use Never Used 10/10/24 10:00 PHQ-9: PHQ-9 Score PHQ-9: Total score 1 10/10/24 12:42 Thrive Assessment: Date of Thrive Assessment Date Thrive assessed 10/10/24 10/10/24 10:00 Currently or been in a relationship where the following occur: No concerns reported Const General: cooperative, healthy appearing, comfortable and no acute distress Orientation/consciousness: patient oriented x3 HENMT Head: Yes normocephalic Ears: hearing grossly normal bilaterally General nose exam: Normal external nose present Eyes General: appearance normal, both eyes and all related structures Conjunctivae: conjunctivae normal Neck Neck: Yes full ROM and Yes no lymphadenopathy Resp Effort & Inspection: normal respiratory effort Auscultation: clear to auscultation bilaterally, no crackles, no rales, no rhonchi and no wheezes Cardio Rate: regular rate Rhythm: regular rhythm Skin General skin exam: no rashes or lesions noted Neuro General: patient oriented x3 Gait exam (Neuro): Normal gait present Extrem General: Yes normal to inspection, Yes full ROM and No edema Psych Affect: normal affect Attitude: cooperative Insight: Good insight present (Psych) Judgement: Good judgement present (Psych) Coding Level of Care Code Est Pt Level 4 (96428) Diagnoses Chronic GERD K21.9 Eczema L30.9 Seasonal allergies J30.2 Hot flashes R23.2 Assessment & Plan Assessment & Plan (1) Chronic GERD: Code(s): K21.9 - Gastro-esophageal reflux disease without esophagitis Category: Medical Plan: Avoid trigger foods such as citrus, tomato products, soda, caffeine, spicy foods and other foods that may be irritating to your stomach. Avoid laying flat 3-4 hours after eating and elevate the head of the bed 30 degrees to prevent acid from moving into the esophagus. Continue on Omeprazole (2) Eczema: Code(s): L30.9 - Dermatitis, unspecified Category: Medical Plan: Worsening eczema on the arms due to seasonal allergies. Plan to send steroid cream to pharmacy and advised not to use this for more than 14 days. (3) Seasonal allergies: Code(s): J30.2 - Other seasonal allergic rhinitis Category: Medical Plan: Continue on Zyrtec daily, refill sent. (4) Hot flashes: Code(s): R23.2 - [place] Category: Medical Plan: Patient is currently undergoing a workup with gynecology and endocrinology. Discussed the mental health aspect of menopausal symptoms recommend seeing a counselor. Plan The patient will be prescribed a steroid cream for eczema, with a usage limit of 14 days to prevent skin thinning. A refill of Zyrtec will be provided for her seasonal allergies. She is advised to await her endocrinology appointment for a hormone consult regarding menopausal symptoms. vitamins are recommended for hair, skin, and nail health, along with adequate hydration. Fasting blood work will be conducted to update previous labs, including vitamin D and levels. Patient was informed and verbally consented to the use of an ambient scribe for clinic note documentation during this visit. Orders: Orders Vitamin B12 and Folate Today R23.2 - [place], Z13.21 - Encounter for screening for nutritional disorder Comprehensive [place]. Panel Fast Today Z13.9 - Encounter for screening, unspecified Lipid Panel Today Z13.220 - Encounter for screening for lipoid disorders TSH reflex Free T4 Today R23.2 - [place], Z00.00 - Encounter for general adult medical examination without abnormal findings Free T4 (Free Thyroxine) Today R23.2 - [place], Z00.00 - Encounter for general adult medical examination without abnormal findings Vitamin D 25-OH Total Today R23.2 - [place], Z00.00 - Encounter for general adult medical examination without abnormal findings Medications: New triamcinolone acetonide 0.1% 1 appl topical DAILY 30 grams 0RF Changed From cetirizine (Zyrtec) 10 mg PO DAILY PRN To cetirizine (Zyrtec) 10 mg PO DAILY 90 tabs 0RF
== END 2024-10-10 10:43 | disposition home or self-care (01) ==
DX: K21.9 Gastro-esophageal reflux disease without esophagitis (principal); L30.9 Dermatitis, unspecified; J30.2 Other seasonal allergic rhinitis; R23.2 Flushing

== ENCOUNTER → 2024-10-10 09:51 | Outpatient (BNVA) | payer BC, SELFPAY | PROVIDERS: PCP Internal Medicine ==

== ENCOUNTER 2024-11-14 12:39 | Outpatient (AMB) | payer BC, SELFPAY ==
--- NOTE | 2024-11-14 12:55 | A.OFFVIS_ITS ---
Vital Signs 11/14/24 13:06 Height 4 ft 11 in Weight 159 lb BMI 32.1 BP 126/86 Blood Pressure Location Rt brachial Position Sitting Intake Visit Reasons: Hormone Consult Intake Note: Referral apt to Web Marketing Strategist is for tomorrow at 9 am. Patient having no period for 1 year. Then had a period on november 03 and ended on November 07. Commercial Administrator: Commercial Administrator Present Accompanied by: Self / Same As Patient Allergies vancomycin (VANCOMYCIN) Allergy (Severe, Verified 11/14/24 13:01) HIVES, severe rash Medication List - Last Reconciled 11/14/24 by Vernell Escobar LPN cetirizine (Zyrtec) 10 mg PO DAILY omeprazole 20 mg PO DAILY PRN triamcinolone acetonide 0.1% 1 appl topical DAILY Is last menstrual period known: Yes Last menstrual period: 11/03/24 Post menopausal: No Patient : No Do you need a note to return to daycare/school/sports/work: No HPI Comments Details: Her lab follow up. History of fatigue, brain fog, hair loss. Prior history of elevated DHEA sulfate. LMP October 2023, then bled this month x4 days like a normal menses. Labs 07/2024- FSH-51.9 LH-45.4. Declines pelvic exam today. [facility] Medical History Hot flashes GERD (gastroesophageal reflux disease) Surgical History History of abscess of breast History of foot surgery History of tubal ligation History of section Family History Father HIV (human immunodeficiency virus infection) Mother Accidental overdose Brother In good health Brother In good health Son In good health Son In good health Daughter In good health Daughter In good health Maternal Aunt Ovarian cancer Paternal Grandmother Diabetes mellitus Social History Housing: Apartment Patient Tobacco Use Status: Current someday Tobacco user Tobacco use type: Cigarette Cigarettes Per Day: 4 e-Cigarette/Vaping Use: Never Used Second Hand Smoke Exposure: Yes service: No Current occupational status: employed 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 Sexual orientation: Straight/Heterosexual Gender identity: Female Cognitive needs: No Hearing needs: No Vision needs: Yes (Glasses) Female Reproductive History Menstrual Age of Menarche: 16 Duration of menses: 3-5 days Date of last menstrual period: 11/03/24 control method: permanent sterilization Total pregnancies: 5 Full term: 4 Number of Living Children: 4 Ab induced: 1 Date of last pap smear: 10/25/21 History of abnormal pap smear: No Date of Mammogram: 04/19/24 History of abnormal mammogram: No Review of Systems Const All systems reviewed & are unremarkable except as noted in HPI and below Endo Reports no additional complaints Physical Exam Vital Signs: Last Vital Signs BP 126/86 11/14/24 13:06 BMI result Body Mass Index 32.1 Const General: cooperative, healthy appearing and no acute distress Psych Appearance: well kempt Attitude: cooperative Thought process: Normal thought process present Assessment & Plan Assessment & Plan (1) Postmenopausal bleeding: Code(s): N95.0 - Postmenopausal bleeding Plan: Discussed lab findings, recommended endometrial biopsy procedure due to postmenopausal bleeding. Preprocedure planning and guidance counseling provided advised to take 3 ibuprofen with food and fluids 1 hour before procedure. Keep appointment for endocrine tomorrow. The patient expressed understanding and agreement with the plan of care. All of her questions and concerns were addressed to the best of my ability. (2) Vitamin D deficiency: Code(s): E55.9 - Vitamin D deficiency, unspecified Category: Medical Plan Discuss results of vitamin-D recommended daily supplementation, Rx sent into pharmacy advised to take with yogurt or other fat soluable food Orders: Orders US pelvic and transvaginal Today N95.0 - Postmenopausal bleeding Vitamin D 25-OH (D2 and D3) 4 Months E55.9 - Vitamin D deficiency, unspecified Medications: New cholecalciferol (vitamin D3) 50 mcg PO DAILY 90 caps 1RF 3 months Coding Level of Care Code Est Pt Level 3 (14182) Diagnoses Postmenopausal bleeding N95.0 Vitamin D deficiency E55.9
[2024-11-14 13:06] VITALS: BP 126/86; BMI 32.1
== END 2024-11-14 13:50 | disposition home or self-care (01) ==
LOC: HO.HWS 12:39
PROVIDERS: Visit Provider Advanced Practice Midwife
DX: N95.0 Postmenopausal bleeding (principal); E55.9 Vitamin D deficiency, unspecified
CPT/HCPCS: 99213

== ENCOUNTER 2024-11-15 09:30 | Outpatient (AMB) | payer BC, SELFPAY ==
--- NOTE | 2024-11-15 09:44 | A.OFFVIS_ITS ---
Vital Signs 11/15/24 09:45 Height 4 ft 11 in Weight 159 lb 2.78 oz BMI 32.1 BP 134/74 Blood Pressure Location Lt brachial Position Sitting Pulse 75 Pulse Source Pulse Oximeter Pulse Oximetry (%) 97 Oxygen Delivery Method Room Air Intake Visit Reasons: Hirsutism Intake Note: New patient present today for Hirsutism office visit. Director Talent Acquisition Required: No Accompanied by: Self / Same As Patient Allergies vancomycin (VANCOMYCIN) Allergy (Severe, Verified 11/15/24 09:48) HIVES, severe rash Medication List - Last Reconciled 11/15/24 by Codi Lebron MD cetirizine (Zyrtec) 10 mg PO DAILY cholecalciferol (vitamin D3) 50 mcg PO DAILY 3 months omeprazole 20 mg PO DAILY PRN triamcinolone acetonide 0.1% 1 appl topical DAILY HPI Comments Details: 44-year-old female coming in today for initial evaluation of elevated DHEA-S levels. Chart review shows labs from 04/28/2023 showed DHEA-S of 342 which is mildly elevated, normal 17 hydroxyprogesterone of 26, normal total testosterone and free testosterone levels. Most recent blood work from 08/28/2024 showed normal TSH of 0.68, FSH LH in the postmenopausal range as expected. DHEA-S again mildly elevated at 321. presents with complaints of hirsutism (mostly chin hair, upper lip) mostly over the past 2 years. no acne Reports hair thinning. but hair loss similar to before. no history of HTN, hyperlipidemia, prediabetes or DM . Weight : 159 lbs, BMI 32.1 kg/m2 , weight gone up by 10 lbs in the last year or so LMP:having periods once a year , last October 2024. around 2019, she started having irregular periods. Before that periods very regular every month, last 3-4 days . Pregnancies: 4, 4 live births , no infertility issues Oldest child 25 years, yongest child: 14 years old Hirsutism is described as moderate ,she reports that she had to pluck every Monday She reports its on her Chin,upper lip nothing on chest and abdomen. 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 No visual field defects, and cranial nerve palsies. Reports chronic headaches, has history of headaches. Physical exam General: sitting comfortably in no acute distress HEENT: normocephalic/atraumatic, , moist oral mucosa Neck: supple, symmetrical, no thyromegaly , Cardiac: normal heart sounds Pulm: normal breath sounds B/L, no added breath sounds Abd: not distended, no tenderness Extremities: no edema, no signs of myxedema Laboratory Tests 04/14/23 04/28/23 08/28/24 09:32 14:00 15:07 TSH 0.78 0.68 FSH 24.1 51.9 Prolactin 7.6 Total Testosterone 36 Fr Testosterone Dialys 5.7 Luteinizing Hormone 45.4 DHEA Sulfate 342 H 321 H 17-Hydroxyprogesterone 26 PFSH Medical History (Updated 11/15/24 @ 10:27 by Codi Lebron MD) Hirsutism Elevated dehydroepiandrosterone sulfate level Hot flashes GERD (gastroesophageal reflux disease) Surgical History History of abscess of breast History of foot surgery History of tubal ligation History of section Family History Father HIV (human immunodeficiency virus infection) Mother Accidental overdose Brother In good health Brother In good health Son In good health Son In good health Daughter In good health Daughter In good health Maternal Aunt Ovarian cancer Paternal Grandmother Diabetes mellitus Social History Housing: Apartment Patient Tobacco Use Status: Current someday Tobacco user Tobacco use type: Cigarette Cigarettes Per Day: 4 e-Cigarette/Vaping Use: Never Used Second Hand Smoke Exposure: Yes service: No Current occupational status: employed 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 Chart review shows labs from 04/28/2023 showed DHEA-S of 342 which is mildly elevated, normal 17 hydroxyprogesterone of 26, normal total testosterone and free testosterone levels. Most recent blood work from 08/28/2024 showed normal TSH of 0.68, FSH LH in the postmenopausal range as expected. DHEA-S again mildly elevated at 321. This is a very mild elevation, and she does have some mild hirsutism, which is easily manageable with plucking. Given that she had regular periods all her life, no issues with fertility, unlikely underlying PCOS. Plus hirsutism only started over the past 1 or 2 years. Not uncommon in postmenopausal women. Her blood work is consistent with being postmenopausal so I agree with OBGYN working her up for postmenopausal bleeding as she did have a cycle this year. DHEA-S elevations can be seen in [place]'s disease, she does not have any hypertension, no history of diabetes, no unexplained weight gain, she does not have any obvious features of hypercortisolism suggest skin thinning, abdominal striae, easy bruising, proximal muscle weakness. Hence at this time no suspicion for hypercortisolism. No features of acromegaly. Normal 17 hydroxyprogesterone from 2022 rules out CAH. We only suspect adrenal or ovarian tumors when DHEA-S are elevated greater than 700, no need to recommend imaging of adrenals at this time given her this is in the 300s. These mild elevations are usually idiopathic. At this time would recommend follow up with OBGYN for further evaluation of postmenopausal bleeding/she is already ordered for an ultrasound. No need to r epeat DHEA-S levels. (2) Hirsutism: Code(s): L68.0 - Hirsutism Category: Medical Plan: She does have some excessive chin hair that is bothersome to her. But she plucks once a week. We did talk about potentially using spironolactone, discussed common side effects of lightheadedness, dizziness, potassium abnormalities and kidney dysfunction. At this time patient would like to hold off. I encouraged cosmetic measures such as continuing with plucking/threading. If patient becomes interested in trying out spironolactone she will let us know. she can follow up with me on an as-needed basis. Plan I spent 45 minutes in reviewing the record, seeing the patient and documenting in the medical record. Coding Level of Care Code New Pt Level 4 (82598) Diagnoses Elevated dehydroepiandrosterone sulfate level R79.89 Hirsutism L68.0 Time Spent (min) 45
[2024-11-15 09:45] VITALS: BP 134/74; PULSE 75; O2SAT 97; BMI 32.1
== END 2024-11-15 10:22 | disposition home or self-care (01) ==
LOC: HO.ENCR 09:31
PROVIDERS: Visit Provider Student in an Organized Health Care Education/Training Program
DX: R79.89 Other specified abnormal findings of blood chemistry (principal); L68.0 Hirsutism
CPT/HCPCS: 99204